=== PATIENT | female | born 1990 | race Two or more races ===

== ENCOUNTER → 2024-07-25 | Outpatient (CLI) | payer BC, SELFPAY ==
--- NOTE | 2024-07-25 09:04 | XR_ITS ---
Examination: Breast ultrasound, unilateral, left complete Date and time of exam: July 25, 2024 0935 hours INDICATIONS: Palpable lump in the left breast on clinical examination by physician 4 days ago Technique: Real-time montero scale ultrasonographic imaging performed left breast including all 4 quadrants as well as nipple retroareolar and axillary region. Findings: No cystic or solid mass IMPRESSION: BI-RADS Category 1: Negative study
--- NOTE | 2024-07-25 09:04 | XR_ITS ---
Examination: Diagnostic digital mammography, unilateral, left Computer aided detection 3-D breast Tomosynthesis, unilateral Date and time of exam: July 25, 2024 0918 hours INDICATIONS: Lump in the left breast 2:00 position on clinical breast examination by physician this week Technique: Nonmagnified MLO, CC views of the left breast have been obtained, reconstructed from 3-D Tomosynthesis images. R2 computer aided detection program utilized for evaluation of suspicious masses and/or abnormal calcifications. 3-D Tomosynthesis images obtained. Findings: The breast is heterogeneously dense, which may obscure small masses 4 mm round nodule upper outer left breast is confirmed circumscribed Impression: BI-RADS category 3: Probably benign findings Recommend continued 6 month left mammogram follow-up
== END | disposition home or self-care (01) ==
LOC: CDIM 08:28
PROVIDERS: Referring Provider Physician Assistant Medical; Visit Provider Physician Assistant Medical
DX: R92.332 Mammographic heterogeneous density, left breast (principal); N63.21 Unspecified lump in the left breast, upper outer quadrant
CPT/HCPCS: 76641; 77061; 77065; G0279

== ENCOUNTER → 2025-05-07 | Outpatient (CLI) | payer BC, SELFPAY ==
--- NOTE | 2025-05-07 11:23 | XR_ITS ---
Examination: Diagnostic digital mammography, bilateral Computer aided detection 3-D breast Tomosynthesis, bilateral Date and time of exam: May 07, 2025 1128 hours, compared to mammograms dating to February 23, 2024 INDICATIONS: Right breast pain beginning 2 months ago, left breast 4 mm nodule circumscribed upper outer left breast on mammogram February 23, 2024 Technique: Nonmagnified MLO, CC views of the breasts to been obtained, reconstructed from 3-D Tomosynthesis images. R2 computer aided detection program utilized for evaluation of suspicious masses and/or abnormal calcifications. 3-D Tomosynthesis images obtained. Findings: The breasts are heterogeneously dense, which may obscure small masses 4.3 cm focal asymmetry which may represent glandular tissue inner right breast Stable nodule outer left breast 4 mm Impression: BI-RADS Category 0: Incomplete: Need additional imaging evaluation Recommend follow-up spot tomographic views inner upper quadrant right breast to assess 4.3 cm focal asymmetry inner right breast on the current CC view Recommend bilateral breast sonography to complete the workup.
== END | disposition home or self-care (01) ==
LOC: CDIM 11:16
PROVIDERS: Referring Provider Physician Assistant Medical; Visit Provider Physician Assistant Medical
DX: N64.89 Other specified disorders of breast (principal); R92.8 Other abnormal and inconclusive findings on diagnostic imaging of breast
CPT/HCPCS: 77062; 77066; G0279

== ENCOUNTER → 2025-05-10 | Outpatient (CLI) | payer BC, SELFPAY ==
--- NOTE | 2025-05-10 12:23 | XR_ITS ---
Examination: Diagnostic digital mammography, unilateral, right Computer aided detection 3-D breast Tomosynthesis, unilateral Date and time of exam: May 10, 2025, 1250 hours INDICATIONS: Mammogram 05/07/2025 4.3 cm focal asymmetry inner right breast Technique: Nonmagnified MLO, CC views of the right breast have been obtained, reconstructed from 3-D Tomosynthesis images. R2 computer aided detection program utilized for evaluation of suspicious masses and/or abnormal calcifications. 3-D Tomosynthesis images obtained. Findings: The breast is heterogeneously dense, which may obscure small masses No suspicious mass is depicted on the spot compression views Impression: BI-RADS category 2: Benign findings Return to your follow-up mammography
--- NOTE | 2025-05-10 12:23 | XR_ITS ---
Examination: Breast ultrasound complete, bilateral Date and time of exam: May 10, 2025, 1233 hours INDICATIONS: Mammogram 05/07/2025 1.3 cm focal asymmetry inner right breast Technique: Real-time grayscale ultrasonographic imaging bilateral breasts, including all 4 quadrants as well as nipple retroareolar and axillary regions. Findings: Sonographic images right and left breast demonstrated no cystic or solid masses IMPRESSION: BI-RADS Category 1: Negative studies
== END | disposition home or self-care (01) ==
LOC: CDIM 12:15
PROVIDERS: Referring Provider Specialist; Visit Provider Specialist
DX: R92.321 Mammographic fibroglandular density, right breast (principal)
CPT/HCPCS: 76641; 77061; 77065; G0279